=== PATIENT | male | born 1985 | race African-American/Black ===

== ENCOUNTER → 2016-06-15 | Outpatient (CLI) | payer OTHER | LOC: RAD 15:53 | PROVIDERS: ATTEND Nurse Practitioner Family | DX: R56.9 Unspecified convulsions (principal) | CPT/HCPCS: 70553; A9577 ==

== ENCOUNTER → 2017-06-23 | Outpatient (CLI) | payer OTHER ==
--- NOTE | 2017-06-23 16:56 | RADIOLOGY REPORT (SQ) ---
EXAM DESCRIPTION: CT PELVIS WITH COMPLETED DATE/TIME: 06/23/2017 4:01 pm REASON FOR STUDY: MYALGIA M79.1 MYALGIA painful rectum and tail bone, pilonidal cyst resected in , evaluate COMPARISON: CT pelvis 09/25/2014 TECHNIQUE: CT scan of the pelvis performed with IV contrast. Patient was injected with 100 mL of IV Isovue-300. Renal function testing deferred, patient less [place] n 50 years old. Images reviewed with soft tissue and bone windows. Reconstructed coronal and sagittal MPR images rev iewed. All images stored on PACS. All CT scanners at this facility use dose modulation, iterative reconstruction, and/or weight based d osing when appropriate to reduce radiation dose to as low as reasonably achievable (ALARA). [facility]: Dose Right [facility]: CareDose [facility]: Dose Right [facility]: Teradose 4D [facility]: [employer] RADIATION DOSE: CT Rad equipment meets quality standard of care and radiation dose reduction techniq ues were employed. CTDIvol: 14.3 - 15.4 mGy. DLP: 1113 mGy-cm. mGy. LIMITATIONS: None. FINDINGS: In the perirectal fat to the left of midline, extending to the intergluteal cleft, a 5 cm x 1.6 cm x 2.4 cm abscess is present on axial image 42, coronal image 82, and sagittal image 52. No extension cranially into the ischiorectal fossa fat. These findings are in the same location as inf lammatory change on CT pelvis 09/25/2014. Remainder of the study demonstrates that the bladder, rectum and prostate are otherwise unremarkable. No free pelvic cul-de-sac fluid. No pelvic adenopathy. Gastrointestinal tract in the pelvis is unremarkable, including a normal appendix. Delayed images through the ureters and bladder are unremarkable. Bones are unremarkable. No sacrococcygeal fracture IMPRESSION: Linear fluid-filled tract to the left of midline, likely a perirectal fistula or abscess measuring 5 x 1.6 x 2.4 cm in size. TECHNICAL DOCUMENTATION: JOB ID: [id number] Quality ID # [id number]: Final reports with documentation of one or more dose reduction techniques (e.g., Au tomated exposure control, adjustment of the mA and/or kV according to patient size, use of iterative reconstruction technique) 2010 [employer]- All Rights Reserved Reading location - IP[facility]workstation name: [email or web address]
== END ==
LOC: RAD 15:17
PROVIDERS: ATTEND Family Medicine
DX: L02.31 Cutaneous abscess of buttock (principal); M79.1 Myalgia
CPT/HCPCS: 72193

== ENCOUNTER 2017-06-29 19:04 | Emergency (ER) | payer OTHER ==
[2017-06-29] MEDS ORDERED: OXYCODONE HCL IR 5 MG TABLET PO ONE (20:21)
--- NOTE | 2017-06-29 20:24 | ER Document Report ---
ED Medical Screen (RME) - General Chief Complaint: Abscess Stated Complaint: ABSCESS Time Seen by Provider: 06/29/17 20:15 Notes: RAPID MEDICAL EVALUATION DISCLOSURE I have seen this patient as part of a Rapid Medical Evaluation and, if applicable, placed any initially appropriate orders. The patient will be seen and fully evaluated, including a full history and physical exam, by a provider ( in Main ED or Fast Track) when a room becomes available. 31-year-old male PMH pilonidal cyst (per his report) here with complaints of buttock pain ongoing for the past 3 weeks. The pain has been progressively worsening and as of 2 days ago it has started draining yellow pus. He has not had any fevers or chills. He states the last time this happened in 2014, he was taken to the OR to have it drained. EXAM Anorectal exam deferred for main provider TRAVEL OUTSIDE OF THE [place] IN LAST 30 DAYS: No - Related Data Allergies/Adverse Reactions: No Known Allergies Allergy (Verified 09/25/14 14:54) Past Medical History Past Surgical History: Reports: Hx Oral Surgery, Hx Orthopedic Surgery Physical Exam - Vital signs Vitals: Temp Pulse Resp BP Pulse Ox 99.0 F 98 16 132/71 H 96 06/29/17 19:16 06/29/17 19:16 06/29/17 19:16 06/29/17 19:16 06/29/17 19:16 Course - Vital Signs Vital signs: Temp Pulse Resp BP Pulse Ox 99.0 F 98 16 132/71 H 96 06/29/17 19:16 06/29/17 19:16 06/29/17 19:16 06/29/17 19:16 06/29/17 19:16
[2017-06-29] MEDS ORDERED: LIDOCAINE 1%/EPINEPHRINE INJ 20 ML VIAL INJ ONE (21:40)
[2017-06-29] MEDS ORDERED: HYDROCODONE/ACETAMINOPHEN 5-325 MG (6 TAB/ER DISP) PO PRN (22:20)
--- NOTE | 2017-06-29 22:24 | ER Document Report ---
ED Skin Rash/Insect Bite/Abscs - General Chief Complaint: Abscess Stated Complaint: ABSCESS Time Seen by Provider: 06/29/17 20:15 Notes: Patient is a 31-year-old male comes emergency department for chief complaint of a painful red intermittently draining area over the left upper buttock. He states he had an abscess drained around his anus previously by surgery, he denies having an abscess in this specific location after details were discussed. He denies fever or chills, nausea or vomiting, he denies any other complaints. TRAVEL OUTSIDE OF THE [place] IN LAST 30 DAYS: No - Related Data Allergies/Adverse Reactions: No Known Allergies Allergy (Verified 09/25/14 14:54) Past Medical History - General Information source: Patient - Social History Smoking Status: Never Smoker Chew tobacco use (# tins/day): Yes - everyday Frequency of alcohol use: None Drug Abuse: None Lives with: Family Family History: Reviewed & Not Pertinent Patient has suicidal ideation: No Patient has homicidal ideation: No - Medical History Medical History: Negative Renal/ Medical History: Denies: Hx Peritoneal Dialysis Past Surgical History: Reports: Hx Oral Surgery, Hx Orthopedic Surgery - Immunizations Immunizations up to date: Yes Hx Diphtheria, Pertussis, Tetanus Vaccination: Yes Review of Systems - Review of Systems Constitutional: No symptoms reported EENT: No symptoms reported Cardiovascular: No symptoms reported Respiratory: No symptoms reported Gastrointestinal: No symptoms reported Genitourinary: No symptoms reported Male Genitourinary: No symptoms reported Musculoskeletal: No symptoms reported Skin: See HPI Hematologic/Lymphatic: No symptoms reported Neurological/Psychological: No symptoms reported Physical Exam - Vital signs Vitals: Temp Pulse Resp BP Pulse Ox 99.0 F 98 16 132/71 H 96 06/29/17 19:16 06/29/17 19:16 06/29/17 19:16 06/29/17 19:16 06/29/17 19:16 - Notes Notes: General Appearance: Well nourished, alert, cooperative, no acute distress, no obvious discomfort. Vitals: reviewed, See vital signs table. Head: no swelling or tenderness to the head Eyes: PERRL, EOMI, Conjuctiva clear Mouth: No decreasd moisture Throat: Normal tonsils. no tonsillar hypertrophy. No exudates. Neck: Supple, no neck tenderness, No thyromegaly. No lymphadenopathy. No nuchal rigidty. Lungs: No wheezing, No rales, No rhonci, No accessory muscle use, good air exchange bilaterally. Heart: Normal rate, Regular rythm, No murmur, no rub Abdomen: Normal BS, soft, No rigidity, No abdominal tenderness, No guarding, no rebound, no abdominal masses, no organomegaly Extremities: strength 5/5 in all extremities, good pulses in all extremities, no swelling or tenderness in the extremities, no edema. Skin: There is some induration noted in the left upper gluteal area, in the upper cleft there is an opening with some intermittent purulent drainage, there is no evidence of abnormality at the anal sphincter, remaining skin exam is unremarkable Neuro: speech clear, oriented x 3, normal affect, responds appropriately to questions. Cranial nerves II through XII are intact. Distal sensation intact. Patient moves all extremities without difficulty. Course - Re-evaluation Re-evalutation: Patient with a pilonidal cyst abscess on exam, this was draining only slightly, area was cleaned, numbed, opened more, large amount of drainage expressed, area was packed, discussed packing, patient recalls that he is already on amoxicillin that primary care placed him on, will add Bactrim to this, patient has a family member who is a nurse and this was discussed, discussed follow-up and return precautions, they state understanding and agreement. - Vital Signs Vital signs: Temp Pulse Resp BP Pulse Ox 98.5 F 79 18 136/75 H 97 06/29/17 22:34 06/29/17 22:34 06/29/17 22:34 06/29/17 22:34 06/29/17 22:34 Procedures - Incision and Drainage Left upper gluteal cleft Type: Single Anesthetic type: 1% Lidocaine w/epi mL's of anesthetic: 5 Blade size: 11 I&D procedure: Shurclens applied, Iodoform packing placed Incision Method: Incision made by scalpel Amount/type of drainage: about 12 cc purulent drainage Discharge - Discharge Clinical Impression: Abscess Condition: Stable Disposition: HOME, SELF-CARE Additional Instructions: The pilonidal cyst abscess has been drained. Packing needs to come out within the next 2 days. Take Bactrim as prescribed, finish amoxicillin. You have been provided with a few pain medication for the next day or so, only take if needed. Keep area clean, clean with soap and water, apply gauze over the area while it drains. This might continue to occur, surgical clinic referral has been placed for follow-up because of this. Return here if you worsen including fever, swelling, spreading redness, or any other concerning symptoms. Prescriptions: Sulfamethoxazole/Trimethoprim [Bactrim Ds Tablet] 1 each PO BID #14 tablet Referrals: [facility] [Provider Group] - Follow up as needed
[2017-06-29 22:37] VITALS: BP 136/75
== END 2017-06-29 22:48 | disposition home or self-care (01) ==
LOC: ER 19:04
DX: L02.31 Cutaneous abscess of buttock (principal); Z72.0 Tobacco use
CPT/HCPCS: 99283; 10060; A6266; J3490

== ENCOUNTER 2018-01-18 16:11 | Day surgery (SDC) | payer OTHER ==
[~2018-01-18 16:11] MED LIST: CEFOXITIN SODIUM 2 GM in DEXTROSE 5%-WATER 100 ML IV PRN; IBUPROFEN 800 MG in NORMAL SALINE 250 ML IV PRN; LACTATED RINGERS 1000 ML IV PRN; LIDOCAINE 0.5% INJ-PF (5 MG/ML) 50 ML SDV SUBCUT PRN; SUCCINYLCHOLINE CHLORIDE INJ 200 MG/10 ML VIAL ONE
[2018-01-18] MEDS ORDERED: ONDANSETRON HCL INJ/PF 4 MG/2 ML SDV ONE (18:24)
[2018-01-18] MEDS ORDERED: KETOROLAC TROMETHAMINE 60 MG/2 ML SDV ONE (19:29)
[2018-01-18] MEDS ORDERED: FENTANYL CITRATE INJ/PF 100 MCG/2 ML AMPUL ONE ×3 (19:29→19:39)
[2018-01-18] MEDS ORDERED: MIDAZOLAM 2 MG/2 ML INJ ONE (19:30)
[2018-01-18] MEDS ORDERED: ACETAMINOPHEN 0 MG/0 ML RTUPB IV ONE (19:30)
[2018-01-18] MEDS ORDERED: PROPOFOL INJ 200 MG/20 ML VIAL IV ONE (19:30)
[2018-01-18] MEDS ORDERED: BUPIVACAINE HCL 0.25 % INJ/PF (2.5 MG/1 ML) 30 ML VIAL ONE (19:32)
[2018-01-18] MEDS ORDERED: ONDANSETRON HCL INJ/PF 4 MG/2 ML SDV IV PRN (20:26)
[2018-01-18] MEDS ORDERED: PROMETHAZINE HCL INJ 25 MG/1 ML VIAL IV PRN ×2 (20:26)
[2018-01-18] MEDS ORDERED: MORPHINE SULFATE 10 MG/ML INJ IV PRN (20:26)
[2018-01-18] MEDS ORDERED: FENTANYL CITRATE INJ/PF 100 MCG/2 ML AMPUL IV PRN ×3 (20:26)
[2018-01-18] MEDS ORDERED: MEPERIDINE HCL/PF INJ 25 MG/1 ML DISP.SYRIN IV PRN (20:26)
[2018-01-18] MEDS ORDERED: DIPHENHYDRAMINE HCL 50 MG/ML VIAL IV PRN (20:26)
[2018-01-18] MEDS ORDERED: OXYCODONE-ACETAMINOPHEN 5-325 MG TABLET PO PRN ×2 (20:26)
[2018-01-19 01:53] VITALS: BP 117/68
--- NOTE | 2018-01-20 14:54 | Discharge Summary ---
Discharge Summary (SDC) - Discharge Final Diagnosis: Pilonidal cyst Date of Surgery: 01/18/18 Discharge Date: 01/18/18 Condition: Stable Forms: Discharge POC-Adult Treatment or Instructions: nonstrenuous activities; followup in 2 weeks; Ok to Shower on Monday; Diet as tolerated; Noroco 10/325mg PO q6hrs prn for pain, call and schedule a follow up appointment with: Dr. Ruiz [address] [place] [address] Discharge Diet: As Tolerated Respiratory Treatments at Home: Deep Breathing/Coughing, Incentive Spirometer Discharge Activity: Balance Activity w/Rest, Slowly Increase Activity Home Care Assistance: None Needed Report the Following to Your Physician Immediately: Shortness of Breath, Nausea , Vomiting, Increase in Pain, Fever over 101 Degrees, Unusual Bleeding, Redness , Swelling, Warmth, Increased Soreness, Drainage-Yellow, Drainage-Espinal, Drainage -Green, Drainage-Foul Smelling, Numbness
--- NOTE | 2018-01-20 14:58 | Operative Report ---
Nonrecallable Operative Report DATE OF SURGERY: 01/18/18 PREOPERATIVE DIAGNOSIS: Pilonidal cyst, symptomatic POSTOPERATIVE DIAGNOSIS: Same as above OPERATION: Excision of pilonidal cyst with primary closure. SURGEON: JOHN BRASWELL ANESTHESIA: GA TISSUE REMOVED OR ALTERED: Pilonidal cyst COMPLICATIONS: None apparent ESTIMATED BLOOD LOSS: Minimal PROCEDURE: Drains/implants: None. Procedure in detail: After informed consent was obtained, the patient was brought to the operating room and laid in the prone position. The area of the gluteal cleft and buttock were prepped and draped in a normal sterile fashion. An elliptical incision was created over the area of pitting. Dissection was carried through the subcutaneous tissue down to the fascia of the sacrum. The cyst was rather large and extended all the way down to the sacrum. The cyst was removed in its entirety. Hemostasis was achieved using Bovie electrocautery. The subcutaneous tissue was closed using 2-0 Vicryl suture in simple interrupted fashion. The overlying skin was closed using 0 Vicryl suture in vertical mattress fashion. Dressing was then placed, and the procedure was concluded. All sponge, instrument, and needle counts were correct x2. Condition: Stable.
== END 2018-01-19 07:21 | disposition home or self-care (01) ==
LOC: OROUT 16:11 → 2S 22:30 → OROUT 01-19 07:21
PROVIDERS: ATTEND Surgery
DX: L05.91 Pilonidal cyst without abscess (principal); L02.31 Cutaneous abscess of buttock
CPT/HCPCS: 88304 ×2; 11770; J2250; J0694; J1885; J3010; J0330; J2405; J7050; J2704; J1741; 300; J0131

== ENCOUNTER 2018-01-24 00:18 | Inpatient (IN) | payer OTHER ==
[2018-01-24] MEDS ORDERED: ACETAMINOPHEN 325 MG TABLET PO ONE (01:00)
[2018-01-24] MEDS ORDERED: FENTANYL CITRATE INJ/PF 100 MCG/2 ML AMPUL IV ONE (01:42)
[2018-01-24] MEDS ORDERED: FENTANYL CITRATE INJ/PF 100 MCG/2 ML AMPUL ONE ×3 (01:43→13:46)
[2018-01-24] MEDS ORDERED: AMPICILLIN SOD/SULBACTAM 3 GM VIAL IV ONE (01:45)
--- NOTE | 2018-01-24 01:47 | ER Document Report ---
ED General - General Chief Complaint: Fever, pain Stated Complaint: POST SURGICAL PAIN AND FEVER Time Seen by Provider: 01/24/18 01:44 Notes: This is a 32-year-old male status post pilonidal cyst surgery postop day #6 to the ER complaining of fever and severe pain in the perirectal area. Not taking any pain medications. Currently not on antibiotics. Surgeon was Dr. Ruiz. No drain is in place. States that there is a large fullness in the perirectal area mostly on the left buttock area just superior to the incision site. TRAVEL OUTSIDE OF THE [place] IN LAST 30 DAYS: No - HPI Onset: Last week Onset/Duration: Gradual Quality of pain: Throbbing Severity: Moderate Pain Level: 3 Associated symptoms: Fever - Related Data Allergies/Adverse Reactions: No Known Allergies Allergy (Verified 01/18/18 17:06) Past Medical History - General Information source: Patient - Social History Smoking Status: Never Smoker Frequency of alcohol use: None Drug Abuse: None Lives with: Spouse/Significant other Family History: Reviewed & Not Pertinent - Past Medical History Cardiac Medical History: Denies: Hx Coronary Artery Disease, Hx Heart Attack, Hx Hypertension Pulmonary Medical History: Denies: Hx Asthma, Hx Bronchitis, Hx COPD, Hx Pneumonia Neurological Medical History: Denies: Hx Cerebrovascular Accident, Hx Seizures Renal/ Medical History: Denies: Hx Peritoneal Dialysis Musculoskeletal Medical History: Denies Hx Arthritis Past Surgical History: Reports: Hx Oral Surgery, Hx Orthopedic Surgery, Other - Pilonidal cyst surgeries - Immunizations Immunizations up to date: Yes Hx Diphtheria, Pertussis, Tetanus Vaccination: No Review of Systems - Review of Systems Notes: Constitutional: denies: Chills, Diaphoresis, fever, chills EENT: denies: Eye discharge, Blurred vision, Tearing, Double vision, Nose congestion, Nose discharge, Throat swelling, Mouth pain Cardiovascular: denies: Palpitations, Heart racing, Orthopnea, Dyspnea, Chest pain Respiratory: denies: Cough, Hurts to breathe, Wheezing, Shortness of breath Gastrointestinal: denies: Abdominal pain, Diarrhea, Nausea, Vomiting, Black stools, bright red blood in stool has pain in the perirectal site around previous surgical incision site with significant amount of redness and swelling Genitourinary: denies: Burning, Dysuria, Discharge, Frequency, Flank pain, Hematuria Musculoskeletal: denies: Joint pain, Joint swelling, Muscle pain, Muscle stiffness, back pain Hematologic/Lymphatic: denies: Anemia, Easy bleeding, Easy bruising, Blood clots Neurological/Psychological: denies: Confusion, Dementia, Depression, Loss of con sciousness Skin: No lesions, no masses, no skin breakdown,. Pain and redness and swelling perirectal on the left Physical Exam - Vital signs Vitals: Temp Pulse Resp BP Pulse Ox 101.3 F H 105 H 16 129/50 H 97 01/24/18 00:58 01/24/18 00:58 01/24/18 00:58 01/24/18 00:58 01/24/18 00:58 Interpretation: Tachycardic, Febrile - General General appearance: Appears well, Alert - HEENT Head: Normocephalic, Atraumatic Eyes: Normal Pupils: PERRL - Respiratory Respiratory status: No respiratory distress Chest status: Nontender Breath sounds: Normal Chest palpation: Normal - Cardiovascular Rhythm: Tachycardia Heart sounds: Normal auscultation Murmur: No - Abdominal Inspection: Normal Distension: No distension Bowel sounds: Normal Tenderness: Nontender Organomegaly: No organomegaly - Rectal Notes: The surgical incision site is noted on the left perirectal/buttock area. There is a large palpable full area around the sutures. Pushing on that revealed a large eruption of seromatous fluctuant drainage. Strong smell. Approximately 30 cc or more of drainage obtained. - Back Back: Normal, Nontender - Extremities General upper extremity: Normal inspection, Nontender, Normal color, Normal ROM, Normal temperature General lower extremity: Normal inspection, Nontender, Normal color, Normal ROM, Normal temperature, Normal weight bearing. No: Christopher's sign - Neurological Neuro grossly intact: Yes Cognition: Normal Orientation: AAOx4 Rashi Coma Scale Eye Opening: Spontaneous [place] Coma Scale Verbal: Oriented [place] Coma Scale Motor: Obeys Commands Speech: Normal Motor strength normal: LUE, RUE, LLE, RLE Sensory: Normal - Psychological Associated symptoms: Normal affect, Normal mood - Skin Skin Temperature: Warm Skin Moisture: Dry Skin Color: Normal, Other - Redness and fullness around the left perirectal surgical incision site. Course - Re-evaluation Re-evalutation: 01/24/18 06:37 Laboratory 01/24/18 01/24/18 01/24/18 01:40 01:40 01:40 WBC 12.5 H RBC 4.71 Hgb 14.3 Hct 42.7 MCV 91 MCH 30.4 MCHC 33.5 RDW 12.1 Plt Count 217 Seg Neutrophils % 82.3 H Lymphocytes % 11.7 L Monocytes % 5.0 Eosinophils % 0.7 Basophils % 0.3 Absolute Neutrophils 10.2 H Absolute Lymphocytes 1.5 Absolute Monocytes 0.6 Absolute Eosinophils 0.1 Absolute Basophils 0.0 PT 12.4 INR 0.88 Sodium 140.7 Potassium 4.1 Chloride 102 Carbon Dioxide 28 Anion Gap 11 BUN 14 Creatinine 1.02 Est GFR ( Amer) > 60 Est GFR (Non-Af Amer) > 60 Glucose 133 H Lactic Acid Calcium 9.6 Total Bilirubin 0.5 Direct Bilirubin 0.3 Neonat Total Bilirubin Not Reportable Neonat Direct Bilirubin Not Reportable Neonat Indirect Bili Not Reportable AST 35 ALT 42 Alkaline Phosphatase 85 Total Protein 7.2 Albumin 4.3 Urine Color Urine Appearance Urine pH Ur Specific Wheeler Urine Protein Urine Glucose (UA) Urine Ketones Urine Blood Urine Nitrite Urine Bilirubin Urine Urobilinogen Ur Leukocyte Esterase Urine WBC (Auto) Urine RBC (Auto) Urine Mucus (Auto) Urine Ascorbic Acid 01/24/18 01/24/18 01:40 02:45 WBC RBC Hgb Hct MCV MCH MCHC RDW Plt Count Seg Neutrophils % Lymphocytes % Monocytes % Eosinophils % Basophils % Absolute Neutrophils Absolute Lymphocytes Absolute Monocytes Absolute Eosinophils Absolute Basophils PT INR Sodium Potassium Chloride Carbon Dioxide Anion Gap BUN Creatinine Est GFR ( Amer) Est GFR (Non-Af Amer) Glucose Lactic Acid 2.6 H Calcium Total Bilirubin Direct Bilirubin Neonat Total Bilirubin Neonat Direct Bilirubin Neonat Indirect Bili AST ALT Alkaline Phosphatase Total Protein Albumin Urine Color YELLOW Urine Appearance CLEAR Urine pH 5.0 Ur Specific Wheeler 1.012 Urine Protein NEGATIVE Urine Glucose (UA) NEGATIVE Urine Ketones NEGATIVE Urine Blood NEGATIVE Urine Nitrite NEGATIVE Urine Bilirubin NEGATIVE Urine Urobilinogen NEGATIVE Ur Leukocyte Esterase NEGATIVE Urine WBC (Auto) 0 Urine RBC (Auto) 1 Urine Mucus (Auto) RARE Urine Ascorbic Acid NEGATIVE Pelvis CT 01/24/18 02:51 IMPRESSION: A 4.8 x 2.3 x 7 cm phlegmonous collection involves the subcutaneous tissues of the left paracentral perineum. Limitation. Patient is doing better at this time. Has received fluids, Toradol, pain medication and antibiotics. Consulted with surgery. He will admit at this time. - Vital Signs Vital signs: Temp Pulse Resp BP Pulse Ox 98.8 F 105 H 16 129/50 H 97 01/24/18 02:41 01/24/18 00:58 01/24/18 00:58 01/24/18 00:58 01/24/18 00:58 - Laboratory Result Diagrams: 01/24/18 01:40 01/24/18 01:40 Laboratory results interpreted by me: 01/24/18 01/24/18 01/24/18 01:40 01:40 01:40 WBC 12.5 H Seg Neutrophils % 82.3 H Lymphocytes % 11.7 L Absolute Neutrophils 10.2 H Glucose 133 H Lactic Acid 2.6 H Discharge - Discharge Clinical Impression: Pilonidal abscess of edgardo cleft Condition: Good Disposition: ADMITTED INPATIENT Admitting Provider: Surgicalist Mayda Gotti Unit Admitted: Surgical Floor
[2018-01-24] MEDS ORDERED: NORMAL SALINE 1000 ML 1,000 ML IV ONE (01:48)
[2018-01-24] MEDS ORDERED: KETOROLAC TROMETHAMINE INJ/PF 30 MG/1 ML SDV IV ONE (01:48)
[2018-01-24 02:00] LABS: ABSOLUTE EOSINOPHILS # (AUTO) 0.1 10^3/uL (0.0-0.6); ABSOLUTE LYMPHOCYTES (AUTO) 1.5 10^3/uL (0.5-4.7); ABSOLUTE MONOCYTES (AUTO) 0.6 10^3/uL (0.1-1.4); ABSOLUTE NEUT (AUTO) 10.2 10^3/uL (1.7-8.2); BASOPHILS % (AUTO) 0.3 % (0-2); EOSINOPHILS % (AUTO) 0.7 % (0-6); HEMATOCRIT 42.7 % (37.9-51.0); HEMOGLOBIN 14.3 g/dL (13.5-17.0); LYMPHOCYTES % (AUTO) 11.7 % (13-45); MEAN CORPUSCULAR HEMOGLOBIN 30.4 pg (27.0-33.4); MEAN CORPUSCULAR HGB CONC 33.5 g/dL (32.0-36.0); MEAN CORPUSCULAR VOLUME 91 fl (80-97); PLATELET COUNT 217 10^3/uL (150-450); RED BLOOD COUNT 4.71 10^6/uL (4.35-5.55); RED CELL DISTRIBUTION WIDTH 12.1 % (11.5-14.0); SEGMENTED NEUTROPHILS % (AUTO) 82.3 % (42-78); TOTAL CELLS COUNTED % (AUTO) 100 %; WHITE BLOOD COUNT 12.5 10^3/uL (4.0-10.5)
[2018-01-24] MEDS ORDERED: METRONIDAZOLE 500 MG/NS RTU 500 MG/100 ML RTUPB IV ONE (02:00)
[2018-01-24 02:04] LABS: INTERNATIONAL RATION (INR) 0.88; PROTHROMBIN TIME 12.4 SEC (11.4-15.4)
[2018-01-24 02:16] LABS: ALANINE AMINOTRANSFERASE 42 U/L (21-72); ALBUMIN 4.3 g/dL (3.5-5.0); ALKALINE PHOSPHATASE 85 U/L (38-126); ANION GAP 11 (5-19); ASPARTATE AMINO TRANSFERASE 35 U/L (17-59); BILIRUBIN,DIRECT 0.3 mg/dL (0.0-0.4); BILIRUBIN,TOTAL 0.5 mg/dL (0.2-1.3); BLOOD UREA NITROGEN 14 mg/dL (7-20); CALCIUM 9.6 mg/dL (8.4-10.2); CARBON DIOXIDE 28 mmol/L (22-30); CHLORIDE 102 mmol/L (98-107); GLUCOSE 133 mg/dL (75-110); POTASSIUM 4.1 mmol/L (3.6-5.0); SODIUM 140.7 mmol/L (137-145); TOTAL PROTEIN 7.2 g/dL (6.3-8.2)
[2018-01-24 03:05] LABS: APPEARANCE,URINE CLEAR; BILIRUBIN,URINE NEGATIVE (NEGATIVE); COLOR,URINE YELLOW; GLUCOSE, URINE NEGATIVE (NEGATIVE); KETONES,URINE NEGATIVE (NEGATIVE); LEUKOCYTE ESTERASE,URINE NEGATIVE (NEGATIVE); NITRITE,URINE NEGATIVE (NEGATIVE); PROTEIN,URINE NEGATIVE (NEGATIVE); URINE SPECIFIC GRAVITY 1.012; UROBILINOGEN,URINE NEGATIVE mg/dL (<2.0)
--- NOTE | 2018-01-24 06:04 | RADIOLOGY REPORT (SQ) ---
EXAM DESCRIPTION: CT PELVIS WITH IV CONTRAST COMPLETED DATE/TME: 01/24/2018 02:51 CLINICAL HISTORY: 32 years Male, pilonidal cyst post op abscess and infection; technologist describes right side abscess. Comparison: June 23, 2017 Technique: IV contrast. Coronal and sagittal reformat. This exam was performed according to our departmental dose-optimization program, which includes automated exposure control, adjustment of the mA and/or kV according to patient size and/or use of iterative reconstruction technique. [facility]: Dose Right [facility]: CareDose [facility]: Dose Right [facility]: Teradose 4D [facility]: [employer] LIMITATIONS: Lesion is labeled left sided while clinical history describes a right-sided abscess. Findings: Evolved 4.8 x 2.3 x 7 cm phlegmonous collection in the subcutaneous soft tissues of the left paramedial perineum extends to the buttock consistent with prior exam from June 2017. Multiphase IV contrast appearance of intrapelvic structures appear otherwise unremarkable. No demonstrated bone, bladder, or rectal communication on this exam without the use of gastrointestinal contrast. No free pelvic fluid.No evidence of appendicitis. Appendix not definitively discerned. IMPRESSION: A 4.8 x 2.3 x 7 cm phlegmonous collection involves the subcutaneous tissues of the left paracentral perineum. Limitation.
[2018-01-24] MEDS ORDERED: NORMAL SALINE 1000 ML 1,000 ML IV PRN ×2 (07:28→15:22)
[2018-01-24] MEDS ORDERED: ONDANSETRON HCL INJ/PF 4 MG/2 ML SDV IV PRN ×2 (07:31→15:22)
[2018-01-24] MEDS ORDERED: MORPHINE SULFATE 10 MG/ML INJ IV PRN ×3 (07:32→15:22)
[2018-01-24] MEDS: CLINDAMYCIN 900 MG/D5W RTU 900 MG/50 ML RTUPB IV SCH ×3 (07:39→22:12)
[2018-01-24] MEDS: AMPICILLIN SODIUM/SULBACTAM NA 3 GM in NORMAL SALINE 100 ML IV SCH ×3 (09:35→21:57)
[2018-01-24] MEDS ORDERED: KETOROLAC TROMETHAMINE 60 MG/2 ML SDV ONE (13:41)
[2018-01-24] MEDS ORDERED: DEXAMETHASONE SOD PHOSPHATE INJ 4 MG/1 ML VIAL ONE (13:41)
[2018-01-24] MEDS ORDERED: ROCURONIUM BROMIDE INJ 50 MG/5 ML VIAL IV ONE (13:41)
[2018-01-24] MEDS ORDERED: ONDANSETRON HCL INJ/PF 4 MG/2 ML SDV ONE (13:41)
[2018-01-24] MEDS ORDERED: SUCCINYLCHOLINE CHLORIDE INJ 200 MG/10 ML VIAL ONE (13:41)
[2018-01-24] MEDS ORDERED: PROPOFOL INJ 200 MG/20 ML VIAL IV ONE (13:45)
[2018-01-24] MEDS ORDERED: ACETAMINOPHEN 1,000 MG/100 ML RTUPB IV ONE (13:45)
[2018-01-24] MEDS ORDERED: MIDAZOLAM 2 MG/2 ML INJ ONE (13:45)
[2018-01-24] MEDS ORDERED: LIDOCAINE 2% INJ-PF (20 MG/ML) 10 ML AMPUL ONE (13:54)
[2018-01-24] MEDS ORDERED: BUPIVACAINE HCL 0.25% /EPINEPHRINE INJ/PF 30 ML SDV ONE (14:18)
[2018-01-24] MEDS ORDERED: PROMETHAZINE HCL INJ 25 MG/1 ML VIAL IV PRN ×2 (14:28)
[2018-01-24] MEDS ORDERED: MEPERIDINE HCL/PF INJ 25 MG/1 ML DISP.SYRIN IV PRN (14:28)
[2018-01-24] MEDS ORDERED: FENTANYL CITRATE INJ/PF 100 MCG/2 ML AMPUL IV PRN ×3 (14:28)
[2018-01-24] MEDS ORDERED: DIPHENHYDRAMINE HCL 50 MG/ML VIAL IV PRN (14:28)
[2018-01-24] MEDS ORDERED: NEOMY/BACITRAC ZN/POLY OINT 15 GM ONE (14:32)
--- NOTE | 2018-01-24 15:12 | Operative Report ---
Nonrecallable Operative Report DATE OF SURGERY: 01/24/18 PREOPERATIVE DIAGNOSIS: Status post closure of pilonidal cyst. Pilonidal cyst seroma and phlegmon. Left gluteal phlegmon POSTOPERATIVE DIAGNOSIS: same OPERATION: incision and drainage of pilonidal cyst phlegmon and seroma SURGEON: JAVIER SARKAR ANESTHESIA: Local - 30 mL 1% lidocaine with epinephrine TISSUE REMOVED OR ALTERED: n/a COMPLICATIONS: n/a ESTIMATED BLOOD LOSS: 20 mL INTRAOPERATIVE FINDINGS: large seroma in the main pilonidal cyst cavity. large hematoma in the left gluteal area PROCEDURE: see dictation
--- NOTE | 2018-01-24 16:20 | OPERATIVE REPORT E ---
Operative Report NAME: NICKI JOSHI : 1985 AGE: 32Y DATE OF SURGERY:01/24/2018 ROOM: 206 PREOPERATIVE DIAGNOSES: 1. STATUS POST CLOSURE OF PILONIDAL CYST. 2. INFECTED PILONIDAL CYST WITH SEROMA AND PHLEGMON. POSTOPERATIVE DIAGNOSES: 1. STATUS POST CLOSURE OF PILONIDAL CYST. 2. INFECTED PILONIDAL CYST WITH SEROMA AND PHLEGMON. OPERATION: Incision and drainage of infected pilonidal cyst and phlegmon. SURGEON: JAVIER SARKAR M.D. OVERLOCK OPERATOR: None. ESTIMATED BLOOD LOSS: 20 mL. COMPLICATIONS: None. ANESTHESIA: General plus 30 mL of 1% lidocaine with epinephrine. FLUIDS: 600 mL of crystalloids. DRAINS: One 1/4-inch [place] drain. HOSPITAL COURSE: This is a 32-year-old male who a week ago underwent complete excision and primary closure of a deep pilonidal cyst. The patient was discharged to home following overnight hospital stay, and reports that during the past 24 to 48 hours prior to presenting to the emergency room this morning he has noted drainage, discomfort, and swelling of the surgical wound as well as the left buttock. A CAT scan of the abdomen and pelvis was done this morning, revealing a phlegmon in the left gluteal area together with signs of inflammatory changes of the surgical area of the pilonidal cyst. A large amount of drainage of foul smelling fluid from the pilonidal closed wound was noted during the physical examination. The patient has been scheduled to undergo debridement of the surgical area and drainage of seroma and phlegmon. Procedure, risks, benefits and complications explained to the patient. He understands and decided to proceed. PROCEDURE: The procedure was done in the operating room. Patient was placed in a supine position on the stretcher. General anesthesia was induced by endotracheal intubation. He was then turned into a prone, slightly jackknife position. The buttocks were gently spread with tape. The area of the sacrum and the surgical site was then prepped and draped in usual fashion. The several Vicryl skin sutures were removed and the pilonidal cyst area was completely opened. A moderate amount of serosanguineous foul-smelling fluid was obtained. This was sent for aerobic and anaerobic culture and gram stain. Subsequently, the area was explored and additional Vycrol sutures were identified and removed with a curette. The entire cavity, which measured about 4 cm x 3 cm, was cleaned until good bleeding was obtained. In addition, a left gluteal cavity was identified just contiguous to the original pilonidal cyst area. This was filled with a hematoma, which was aspirated, and the cavity debrided with a curette. After this was accomplished, a stab wound was made in the left buttock and a 1/4-inch [place] drain was placed through the stab wound and exited through the main incision and sutured with a 2-0 silk suture. The pilonidal cyst area was then irrigated with normal saline until clear. Bleeding was noted at the bottom of the pilonidal cyst cavity. This was controlled with Bovie first and then packed with Surgicel and Gelfoam tightly to prevent recurrence of bleeding. The remaining portion of the cavity and the seroma cavity of the left buttock were smeared with triple antibiotic ointment and packed tightly with 1/2-inch Xeroform gauze. Sterile dressings were then applied with tape. The patient tolerated the procedure well, extubated, and transferred to the recovery room in satisfactory condition. DICTATING PHYSICIAN: JAVIER SARKAR M.D. [id number] PATTYY#: [id number] ID: [id number] JOB#: [id number] ACCT: [id number] cc:JAVIER SARKAR M.D. > MTDD
[2018-01-24 20:31] LABS: APPEARANCE,URINE CLEAR; BILIRUBIN,URINE NEGATIVE (NEGATIVE); COLOR,URINE YELLOW; GLUCOSE, URINE NEGATIVE (NEGATIVE); KETONES,URINE NEGATIVE (NEGATIVE); LEUKOCYTE ESTERASE,URINE NEGATIVE (NEGATIVE); NITRITE,URINE NEGATIVE (NEGATIVE); PROTEIN,URINE NEGATIVE (NEGATIVE); URINE SPECIFIC GRAVITY 1.012; UROBILINOGEN,URINE NEGATIVE mg/dL (<2.0)
[2018-01-24] MEDS: FAMOTIDINE INJ/PF 20 MG/2 ML SDV IV SCH (21:56)
[2018-01-25] MEDS ORDERED: CLINDAMYCIN 900 MG/D5W RTU 900 MG/50 ML RTUPB IV ONE
[2018-01-25] MEDS: AMPICILLIN SODIUM/SULBACTAM NA 3 GM in NORMAL SALINE 100 ML IV SCH ×2 (03:13→08:45)
[2018-01-25 06:58] LABS: ABSOLUTE BASOPHILS # (AUTO) 0.1 10^3/uL (0.0-0.2); ABSOLUTE LYMPHOCYTES (AUTO) 1.5 10^3/uL (0.5-4.7); ABSOLUTE MONOCYTES (AUTO) 0.7 10^3/uL (0.1-1.4); ABSOLUTE NEUT (AUTO) 9.2 10^3/uL (1.7-8.2); BASOPHILS % (AUTO) 0.6 % (0-2); EOSINOPHILS % (AUTO) 0.3 % (0-6); HEMATOCRIT 36.8 % (37.9-51.0); HEMOGLOBIN 12.6 g/dL (13.5-17.0); LYMPHOCYTES % (AUTO) 12.8 % (13-45); MEAN CORPUSCULAR HEMOGLOBIN 30.6 pg (27.0-33.4); MEAN CORPUSCULAR HGB CONC 34.3 g/dL (32.0-36.0); MEAN CORPUSCULAR VOLUME 89 fl (80-97); MONOCYTES % (AUTO) 6.3 % (3-13); PLATELET COUNT 171 10^3/uL (150-450); RED BLOOD COUNT 4.13 10^6/uL (4.35-5.55); RED CELL DISTRIBUTION WIDTH 12.1 % (11.5-14.0); TOTAL CELLS COUNTED % (AUTO) 100 %; WHITE BLOOD COUNT 11.5 10^3/uL (4.0-10.5)
[2018-01-25 07:28] LABS: ANION GAP 9 (5-19); BLOOD UREA NITROGEN 11 mg/dL (7-20); CARBON DIOXIDE 24 mmol/L (22-30); CHLORIDE 107 mmol/L (98-107); GLUCOSE 125 mg/dL (75-110); POTASSIUM 4.4 mmol/L (3.6-5.0); SODIUM 140.1 mmol/L (137-145)
[2018-01-25] MEDS ORDERED: ENOXAPARIN SODIUM INJ 40 MG/0.4 ML DISP.SYRIN SUBCUT SCH (10:00)
[2018-01-25] MEDS ORDERED: CLINDAMYCIN 900 MG/D5W RTU 900 MG/50 ML RTUPB IV SCH (10:00)
[2018-01-25] MEDS: FAMOTIDINE INJ/PF 20 MG/2 ML SDV IV SCH ×2 (10:27→11:25)
--- NOTE | 2018-01-25 10:54 | PDOC DISCHARGE SUMMARY ---
General - Admit/Disc Date/PCP Admission Date/Primary Care Provider: 01/24/18 06:46 Discharge Date: 01/25/18 - Discharge Diagnosis (1) Pilonidal abscess of edgardo cleft Is this a current diagnosis for this admission?: Yes Summary: Is a 32-year-old male who was admitted yesterday for wound infection of his previous pilonidal cystectomy. He was noted by by Dr. Gotti that the wound had increased drainage and tenderness and a question of abscess underneath the previously close skin. Taken to surgery for wound debridement and drainage and subsequently had wound dressing changes done on the floor This morning patient feels well the packing was changed and the wound bed looks clean patient has been given instruction on wound packing and sitz baths he is also instructed to obtain a hand-held shower head and to spray into the wound at least once a day. He has a follow-up appointment with Dr. Ruiz in 2 weeks and has been given instructions on wound dressings and cautions on when to come back or call his physician - Additional Information Resuscitation Status: Full Code Discharge Diet: As Tolerated Discharge Activity: Activity As Tolerated Prescriptions: Cephalexin Monohydrate [Keflex 500 mg Capsule] 500 mg PO QID #20 capsule Home Medications: Ibuprofen [Motrin 800 mg Tablet] 800 mg PO PRN PRN 01/18/18 Cephalexin Monohydrate [Keflex 500 mg Capsule] 500 mg PO QID #20 capsule 01/25/18 History of Present Illness History of Present Illness: NICKI JOSHI is a 32 year old male admitted for pain at the previous incision site in his buttock cleft. Physical Exam Vital Signs: Temp Pulse Resp BP Pulse Ox 98.1 F 62 20 107/55 L 97 01/25/18 08:37 01/25/18 08:37 01/25/18 08:37 01/25/18 08:37 01/25/18 08:37 Intake & Output 01/24/18 01/25/18 01/26/18 06:59 06:59 06:59 Intake Total 1100 3500 Output Total 25 Balance 1100 3475 Weight 96 kg 99.6 kg Exam: Wound site in the buttock cleft was examined and noted to be clean dry and without any evidence of purulent drainage The [place] drain was in place and fixed with a suture Results Laboratory Results: 01/25/18 06:34 01/25/18 06:34 01/24/1818 01/25/18 20:19 06:34 06:34 WBC 11.5 H RBC 4.13 L Hgb 12.6 L Hct 36.8 L MCV 89 MCH 30.6 MCHC 34.3 RDW 12.1 Plt Count 171 Seg Neutrophils % 80.0 H Lymphocytes % 12.8 L Monocytes % 6.3 Eosinophils % 0.3 Basophils % 0.6 Absolute Neutrophils 9.2 H Absolute Lymphocytes 1.5 Absolute Monocytes 0.7 Absolute Eosinophils 0.0 Absolute Basophils 0.1 Sodium 140.1 Potassium 4.4 Chloride 107 Carbon Dioxide 24 Anion Gap 9 BUN 11 Creatinine 0.85 Est GFR ( Amer) > 60 Est GFR (Non-Af Amer) > 60 Glucose 125 H Calcium 9.0 Urine Color YELLOW Urine Appearance CLEAR Urine pH 6.0 Ur Specific [place] 1.012 Urine Protein NEGATIVE Urine Glucose (UA) NEGATIVE Urine Ketones NEGATIVE Urine Blood NEGATIVE Urine Nitrite NEGATIVE Ur Leukocyte Esterase NEGATIVE Urine WBC (Auto) 1 Impressions: Pelvis CT 01/24/18 02:51 IMPRESSION: A 4.8 x 2.3 x 7 cm phlegmonous collection involves the subcutaneous tissues of the left paracentral perineum. Limitation. Qualifiers - * PATIENT BEING DISCHARGED WITH ANY OF THE FOLLOWING DIAGNOSIS: No
[2018-01-25 11:30] VITALS: BP 111/43
== END 2018-01-25 13:20 | disposition home or self-care (01) | DRG 603 ==
LOC: ER 00:18 → EH 06:46 → 2N 11:48
PROVIDERS: ADMIT Surgery; ATTEND Surgery
PROC: 0H98X0Z Drainage of Buttock Skin with Drainage Device, External Approach (ICD-10-PCS; principal; 2018-01-24 15:15)
DX: L05.01 Pilonidal cyst with abscess (principal); Z79.899 Other long term (current) drug therapy
CPT/HCPCS: 300; 36415; 72193; 80048; 80053; 81001; 83605; 85025; 85610; 87040; 87070; 87075; 87077; 87086; 87186; 87205; 96365; 96367; 96375; 99285; J0131; J0295; J0330; J1100; J1885; J2250; J2405; J2704; J3010; J3490; J7030; S0028